=== PATIENT | female | born 1945 | race Caucasian/White ===

== ENCOUNTER 2018-01-17 19:10 | Emergency (ER) | payer OTHER, SELFPAY ==
[2018-01-17 19:14] VITALS: BP 194/104; PULSE 107; RESP 18; TEMP 36.3; O2SAT 98; BMI 50.1
--- NOTE | 2018-01-17 19:55 | ED_ITS ---
HPI - Neuro Symptoms/Deficit General Chief Complaint: Neuro Symptoms/Deficit Stated Complaint: thinks stroke Time Seen by Provider: 01/17/18 19:23 Source: patient Mode of arrival: ambulatory Limitations: no limitations History of Present Illness HPI Narrative: Patient is a 72-year-old female who presents with slight headache today. She is actually sent over from the [facility] for evaluation of TIA and stroke. Yesterday she was seen over there she had difficulty counting and remembering things. She says that she has had a memory problem off and on for some time but yesterday she had difficulty doing math and pain for things. She said she had corners in her hand and she can't count the corners which is atypical for her. 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 She had no weakness she did not drop anything she had no trouble speaking. Today she is able to remember and count things and feels back to herself but is having a slight headache on the front of her head. She has been having some shortness of breath with exertion she does have asthma. She started taking her Lasix for swelling in her legs. She denies any orthopnea. On Anticoagulants: Yes (asa) Related Data Allergies Allergy/AdvReac Type Severity Reaction Status Date / Time cephalexin [CEPHALEXIN] Allergy Mild breathing Verified 01/17/18 19:14 diff ciprofloxacin [From CIPRO] Allergy Mild itching Verified 01/17/18 19:14 clindamycin [CLINDAMYCIN] Allergy Mild hives Verified 01/17/18 19:14 lisinopril [LISINOPRIL] Allergy Mild breathing Verified 01/17/18 19:14 diff nifedipine [NIFEDIPINE] Allergy Mild swelling Verified 01/17/18 19:14 oxycodone [OXYCODONE] Allergy Mild mouth sores Verified 01/17/18 19:14 sulfamethoxazole Allergy Mild diarrhea/yeast Verified 01/17/18 19:14 [From FEBRA] inf trimethoprim [From SEPTRA] Allergy Mild diarrhea/yeast Verified 01/17/18 19:14 inf atenolol [ATENOLOL] Allergy Unknown cough Verified 01/17/18 19:14 Trazadone Allergy Mild Uncoded 10/04/17 11:46 Review of Systems Review of Systems All systems reviewed & are unremarkable except as noted in HPI and below Constitutional Denies chills, Denies fever(s), Denies lethargy and Denies weakness Cardiovascular Denies chest pain, Denies irregular heart rhythm, Denies lightheadedness, Denies palpitations and Denies orthopnea Respiratory Reports as per HPI Musculoskeletal Denies back pain, Denies muscle weakness, Denies numbness and Denies tingling Integumentary/Breasts Denies pruritus, Denies erythema, Denies rash and Denies wounds Neurologic Reports as per HPI, Denies numbness, Denies tingling and Denies weakness Endocrine Denies palpitations PFSH Medical History Hypertension (Acute) Social History Smoking Status: Never smoker Exam Initial Vital Signs Initial Vital Signs: Vital Signs Temperature 97.4 F L 01/17/18 19:14 Pulse Rate 107 H 01/17/18 19:14 Respiratory Rate 18 01/17/18 19:14 Blood Pressure 194/104 H 01/17/18 19:14 Pulse Oximetry 98 01/17/18 19:14 Const General: cooperative and healthy appearing Nutritional Appearance: overweight HENMT Head: normal to inspection and normocephalic Neck Neck: normal visual inspection, full ROM and no meningeal signs Chest Chest: normal inspection of the chest Resp Effort & Inspection: normal respiratory effort, able to speak in complete sentences, no respiratory distress and no use of accessory muscles Auscultation: clear to auscultation bilaterally, no rales, no rhonchi and no wheezes Cardio Rate: regular rate Rhythm: regular rhythm Heart Sounds: no click, no gallops, no murmurs and no rubs Pulses: normal peripheral pulses GI Inspection: non-distended Palpation: soft, no hepatosplenomegaly, No guarding, No pulsatile mass and No tender Auscultation: normal bowel sounds Skin General: no rashes or lesions noted, elasticity normal and No erythema Neuro General: alert and awake Cranial Nerves: CN's II-XI intact bilaterally Cognition: normal cognition Speech: speech normal Gait: normal gait Motor: muscle tone normal throughout and strength 5/5 throughout Sensory Exam: no sensory deficits noted Scores NIH Stroke Scale Level of Conciousness: Alert, keenly responsive Ask month/age: Answers both questions correctly. Open/close eyes, close hand: Performs both tasks correctly Best gaze horizontal: Normal Visual szymanski: No visual loss Facial palsy: Normal symetrical movement Left arm drift: No drift for full 10 sec Right arm drift: No drift for full 10 sec Left leg drift: No drift for full 10 sec Right leg drift: No drift for full 10 sec Limb ataxia: Absent Sensory on face/arms/legs: Normal, no sensory loss Best language: No aphasia, normal Dysarthria: Normal Extinction or inattention: No abnormality Total NIH Stroke scale score: 0 Course Orders Ordered: ED Orders 01/17/18 19:56 CT head/brain wo con Stat XR chest 1V Stat EKG-12 Lead Stat 01/17/18 20:04 Complete Blood Count MAN DIFF Stat Comprehensive Metabolic Panel Stat Creatine Kinase MB Urgent Partial Thromboplastin Time Stat Prothrombin Time INR Stat Troponin I Stat Vital Signs - 8 hr 01/17/18 20:30 01/17/18 21:39 Pulse Rate 90 89 Respiratory Rate 23 17 Blood Pressure 133/92 H Blood Pressure [Right Arm] 168/96 H Pulse Oximetry 96 97 MDM - Neuro Symptoms/Deficit Lab Data Attestation: I reviewed the patient's lab results. Result diagrams: 01/17/18 20:04 01/17/18 20:04 Lab Results 01/17/18 01/17/18 01/17/18 Range/Units 20:04 20:04 20:04 WBC 10.4 (4.5-11.0) X10^3/uL RBC 4.68 (4.0-5.2) X10^6/uL Hgb 14.4 (12.0-16.0) g/dL Hct 42.7 (36-46) % MCV 91.4 (80-100) fL MCH 30.7 (26-34) PG MCHC 33.6 (30-36) % RDW 13.8 (11.6-14.8) % Plt Count 261 (150-400) X10^3/uL Total Counted 100 Seg Neutrophils % 60.0 (38-70) % Lymphocytes % (Manual) 34.0 (25-45) % Monocytes % (Manual) 6.0 (2-11) % Neutrophils # (Manual) 6240 H (6017-1410) /uL RBC Morphology Normal morphology PT 11.0 (10.1-12.7) SECONDS INR 1.0 (0.9-1.3) APTT 28 (26.4-36.2) SECONDS Sodium 139 (137-145) mmol/L Potassium 4.6 (3.4-5.1) mmol/L Chloride 99 (98-107) mmol/L Carbon Dioxide 28 (22-32) mmol/L BUN 20 H (7-17) mg/dL Creatinine 0.80 (0.52-1.04) mg/dL Estimated GFR > 60.0 (>60) mL/min BUN/Creatinine Ratio 25.0 H (6-22) Glucose 97 (80-110) mg/dL Calcium 10.4 H (8.4-10.2) mg/dL Total Bilirubin 0.8 (0.2-1.3) mg/dL AST 46 H (14-36) IU/L ALT 32 (9-52) IU/L Alkaline Phosphatase 65 (38-126) U/L CK-MB (CK-2) (<2.37) ng/mL Troponin I < 0.012 (0.01-0.034) ng/mL Total Protein 8.0 (6.3-8.2) g/dL Albumin 4.8 (3.5-5.0) g/dL Globulin 3.2 (1.7-4.1) g/dL Albumin/Globulin Ratio 1.5 (1.0-2.8) 07/25/18 Range/Units 20:04 WBC (4.5-11.0) X10^3/uL RBC (4.0-5.2) X10^6/uL Hgb (12.0-16.0) g/dL Hct (36-46) % MCV (80-100) fL MCH (26-34) PG MCHC (30-36) % RDW (11.6-14.8) % Plt Count (150-400) X10^3/uL Total Counted Seg Neutrophils % (38-70) % Lymphocytes % (Manual) (25-45) % Monocytes % (Manual) (2-11) % Neutrophils # (Manual) (3471-0998) /uL RBC Morphology PT (10.1-12.7) SECONDS INR (0.9-1.3) APTT (26.4-36.2) SECONDS Sodium (137-145) mmol/L Potassium (3.4-5.1) mmol/L Chloride (98-107) mmol/L Carbon Dioxide (22-32) mmol/L BUN (7-17) mg/dL Creatinine (0.52-1.04) mg/dL Estimated GFR (>60) mL/min BUN/Creatinine Ratio (6-22) Glucose (80-110) mg/dL Calcium (8.4-10.2) mg/dL Total Bilirubin (0.2-1.3) mg/dL AST (14-36) IU/L ALT (9-52) IU/L Alkaline Phosphatase (38-126) U/L CK-MB (CK-2) 1.57 (<2.37) ng/mL Troponin I (0.01-0.034) ng/mL Total Protein (6.3-8.2) g/dL Albumin (3.5-5.0) g/dL Globulin (1.7-4.1) g/dL Albumin/Globulin Ratio (1.0-2.8) Imaging Data CT scan - head: Radiologist's impression: PROCEDURE: CT HEAD/BRAIN WO CON INDICATIONS: headache difficulty thinking yesterday now improved TECHNIQUE: Noncontrast 4.5 mm thick angled axial sections acquired from the foramen magnum to the vertex, with coronal and sagittal reformats. For radiation dose reduction, the following was used: automated exposure control, adjustment of mA and/or kV according to patient size. COMPARISON: None. FINDINGS: Image quality: Excellent. CSF spaces: Basal cisterns are patent. No extra-axial fluid collections. Ventricles are normal in size and shape. Brain: No midline shift. No intracranial masses or hemorrhage. Eastman-white matter interface is normal. Skull and face: Calvarium and visualized facial bones are intact, without suspicious lesions. Sinuses: Visualized sinuses and mastoids are clear. IMPRESSION: No CT evidence of acute intracranial pathology. Dictated by: Hamilton Porter M.D. on 01/17/2018 at 20:19 Chest x-ray: Radiologist's impression: PROCEDURE: XR CHEST 1V INDICATIONS: sob TECHNIQUE: One view of the chest was acquired. COMPARISON: None. FINDINGS: Surgical changes and devices: None. Lungs and pleura: No pleural effusions or pneumothorax. Lungs are clear. Mediastinum: Mediastinal contours appear normal. Heart size is normal. Bones and chest wall: No suspicious bony lesions. Overlying soft tissues appear unremarkable. IMPRESSION: No radiographic evidence of acute cardiopulmonary pathology. Dictated by: Hamitlon Porter M.D. on 01/17/2018 at 21:02 ECG Data Attestation: I personally reviewed and interpreted this ECG as follows: MDM Narrative Medical decision making narrative: Patient is alert and id no focal deficits. Yesterday she had difficulty concentrating and thinking which has now resolved. A CT blood work within normal limits, x-ray is clear. Possible TIA. Of blood pressure has improved without any intervention. Headache is also improved. Discharge Plan Departure Patient Disposition: Home, Self-Care Clinical Impression: Hypertension, Transient cerebral ischemia Discharge Date/Time: 01/17/18 21:40 Interventions: ED Discharge Assessment Last Done: 01/17/18 21:39 Instructions: Essential Hypertension, DI for Transient Ischemic Attack Activity Restrictions/Additional Instructions: *You have been diagnosed with hypertension *What to do: It is possibly had a TIA or mini-stroke. He may require further evaluation with her primary care physician *Continue to take medications as directed *Follow up with your primary care provider in 2-3 days *Return to ER if you should have weakness, confusion, speech difficulty or any new, worsening or concerning symptoms
[2018-01-17 20:08] LABS: Hematocrit 42.7 % (36-46); Hemoglobin 14.4 g/dL (12.0-16.0); Mean Corpuscular HGB Conc 33.6 % (30-36); Mean Corpuscular Hemoglobin 30.7 PG (26-34); Mean Corpuscular Volume 91.4 fL (80-100); Platelet Count 261 X10^3/uL (150-400); Red Blood Cell Count 4.68 X10^6/uL (4.0-5.2); Red Cell Distribution Width 13.8 % (11.6-14.8); White Blood Cell Count 10.4 X10^3/uL (4.5-11.0)
[2018-01-17 20:13] LABS: PTT Partial Thromboplastin Tim 28 SECONDS (26.4-36.2)
[2018-01-17 20:16] LABS: Alanine Aminotransferase 32 IU/L (9-52); Albumin 4.8 g/dL (3.5-5.0); Albumin Globulin Ratio 1.5 (1.0-2.8); Alkaline Phosphatase 65 U/L (38-126); Aspartate Aminotransferase 46 IU/L (14-36); Bilirubin Total 0.8 mg/dL (0.2-1.3); Blood Urea Nitrogen 20 mg/dL (7-17); Calcium 10.4 mg/dL (8.4-10.2); Carbon Dioxide 28 mmol/L (22-32); Chloride 99 mmol/L (98-107); Estimated Glomerular Filt Rate > 60.0 mL/min (>60); Globulin 3.2 g/dL (1.7-4.1); Glucose 97 mg/dL (80-110); Potassium 4.6 mmol/L (3.4-5.1); Sodium 139 mmol/L (137-145)
[2018-01-17 20:27] LABS: HEMOLYSIS 78 (0-50)
[2018-01-17 20:30] VITALS: BP 168/96; PULSE 90; RESP 23; O2SAT 96
[2018-01-17 20:30] LABS: Troponin I < 0.012 ng/mL (0.01-0.034)
[2018-01-17 20:49] LABS: Neutrophils Absolute Manual 6240 /uL (3000-5900); Total Cells Counted 100
[2018-01-17 20:50] LABS: RBC Morphology Normal Morphology
[2018-01-17 21:24] LABS: Creatine Kinase MB 1.57 ng/mL (<2.37)
[2018-01-17 21:39] VITALS: BP 133/92; PULSE 89; RESP 17; O2SAT 97
== END 2018-01-17 21:40 | disposition home or self-care (01) ==
PROVIDERS: Emergency Provider Emergency Medicine
DX: I10 Essential (primary) hypertension (principal); G45.9 Transient cerebral ischemic attack, unspecified
CPT/HCPCS: 36591; 70450; 71045; 80053; 82553; 84484; 85025; 85610; 85730; 93005; 99283; 99285; 99291

== ENCOUNTER → 2024-01-25 12:32 | Outpatient (CLI) | payer OTHER, SELFPAY | PROVIDERS: PCP Physician Assistant; Visit Provider Physician Assistant | DX: T14.8XXA Other injury of unspecified body region, initial encounter (principal); L08.9 Local infection of the skin and subcutaneous tissue, unspecified | CPT/HCPCS: 87070; 87075; 87077; 87147; 87186; 87205 ==

== ENCOUNTER → 2024-02-06 10:34 | Outpatient (CLI) | payer OTHER, SELFPAY | PROVIDERS: PCP Physician Assistant; Visit Provider Physician Assistant | DX: L08.9 Local infection of the skin and subcutaneous tissue, unspecified (principal) | CPT/HCPCS: 87070; 87075; 87205 ==

== ENCOUNTER → 2024-05-06 11:30 | Outpatient (CLI) | payer OTHER, SELFPAY | PROVIDERS: PCP Physician Assistant; Visit Provider Physician Assistant | DX: R35.0 Frequency of micturition (principal); R82.90 Unspecified abnormal findings in urine; H92.01 Otalgia, right ear | CPT/HCPCS: 87077; 87086; 87186 ==

== ENCOUNTER → 2024-05-20 14:16 | Outpatient (CLI) | payer OTHER, SELFPAY ==
[2024-05-20 19:25] LABS: Appearance Urine UA CLEAR; Bilirubin Urine UA NEGATIVE (NEGATIVE); Color Urine UA YELLOW; Glucose Urine UA NEGATIVE (Negative); Ketones Urine UA NEGATIVE (NEGATIVE); Leukocyte Esterase Urine UA NEGATIVE (NEGATIVE); Nitrite Urine UA NEGATIVE (Negative); Occult Blood Urine UA NEGATIVE (Negative); Protein Urine UA NEGATIVE (Negative); Urobilinogen Urine UA 0.2 E.U./dL (0.2)
[2024-05-20 20:07] LABS: Bacteria Urine None Seen; Culture Indicated Urine Cult Not Indicated; RBC Urine None Seen (0-5/HPF); Squamous Epithelial Cell Urine None Seen (0-5/HPF); Urine Volume 10mL (spun); WBC Urine None Seen (0-5/HPF)
== END ==
PROVIDERS: PCP Physician Assistant; Visit Provider Physician Assistant
DX: N39.0 Urinary tract infection, site not specified (principal)
CPT/HCPCS: 81001

== ENCOUNTER → 2024-07-09 16:36 | Outpatient (CLI) | payer OTHER, SELFPAY | PROVIDERS: PCP Physician Assistant; Visit Provider Physician Assistant | DX: N39.0 Urinary tract infection, site not specified (principal) | CPT/HCPCS: 87086 ==

== ENCOUNTER → 2025-01-09 16:17 | Outpatient (CLI) | payer OTHER, SELFPAY | PROVIDERS: PCP Physician Assistant; Visit Provider Physician Assistant Medical | DX: L72.9 Follicular cyst of the skin and subcutaneous tissue, unspecified (principal); L08.9 Local infection of the skin and subcutaneous tissue, unspecified | CPT/HCPCS: 87070; 87075; 87077; 87147; 87205 ==